=== PATIENT | male | born 1950 | race Caucasian/White ===

== ENCOUNTER → 2018-06-15 | Outpatient (CLI) | payer OTHER ==
[~2018-06-15] MED LIST: ASA5UEC PO; ATENOLOL 25 MG25 M1 PO; CARDURA4 MG PO; PREVACID30 MG PO; ZYLOPRIM100 MG PO
--- NOTE | 2018-06-15 16:52 | CARDNUC ---
[place] [address] CARDIAC NUCLEAR IMAGING REPORT Name: KERRI WAGGONER Room: [facility]#: [id number] Admission: 06/15/18 Attend Phys: Kerri Guzman, Discharge: Date of : 46 Date of Service: 06/15/18 165 Report #: [id number] THIS REPORT FOR: //name// APPROVED REPORT Imaging Protocol: Rest Tc-99m/Stress Tc-99m 1 day Study performed: 06/15/2018 09:30:00 Indication: Abnormal EKG,Chest pain Patient Location: Out-Patient Stress Tech: Angela Vargas Stress Nurse: Jaqueline Mendoza RN NM Tech:SONI Mckeon Ht: 5 ft 8 in Wt: 200 lbs BSA: 2.04 m2 BMI: 30.40 Medical History Medical History: Angina, Arrhythmia, Diabetes, Former Smoker, HTN, Hyperlipidemia, uses smokless tobacco presently. Medications: Atenolol, Cardura, Losartan, Rosuvastatin, ASA 325 Mg. Allergies: Penicillin Cardiac Risk Factors: Age, DM, FHX of CAD, HTN, Hyperlipidemia, Past Smoker, Now uses smokless tobacco. Previous Cardiac Procedures: None Pretest Chest Pain Characteristics: No chest pain Exercise History: Physically active Physical Disabilities: None Meds Held (24 hrs): Atenolol. Resting Data Rest SPECT myocardial perfusion imaging was performed in supine position 30 minutes following the intravenous injection of 10.9 mCi of Tc-99m Sestamibi. Time of rest injection: 939 Date: 06/15/2018 The images were gated to evaluate regional wall motion and calculate left ventricular ejection fraction. Administration Route: IV Administration Site: Left AC Exercise Stress At peak stress, the patient was injected intravenously with 33.6mCi of Tc-99m Sestamibi. Time of stress injection: [address] [place] [address] CARDIAC NUCLEAR IMAGING REPORT Name: KERRI WAGGONER Room: [facility]#: [id number] Admission: 06/15/18 Attend Phys: Kerri Guzman, Discharge: Date of : 46 Date of Service: 06/15/18 1652 Report #: [id number] Administration Route: IV Gated Stress SPECT was performed 30 minutes after stress injection. The images were gated to evaluate regional wall motion and calculate left ventricular ejection fraction. Prone imaging was performed. Stress Test Details Stress Test: Exercise stress testing was performed using a Pako protocol. HR Max Heart Rate (APMHR): 150 bpm Resting HR: 80 bpm Target HR (85% APMHR): 127 bpm Max HR Achieved: 138 bpm % of APMHR: 92 Recovery HR: 97 bpm BP Resting BP: 176/89 mmHg Max BP: 177/72 mmHg Recovery BP: 137/77 mmHg ECG Resting ECG: Sinus Rhythm Stress ECG: Sinus Tachycardia ST Change: None Arrhythmia: None Recovery ECG: Sinus Rhythm Recovery ST Change: None Recovery Arrhythmia: None Clinical Reason for Termination: Completed protocol, Target HR achieved. Stress Symptoms: Dyspnea, Lightheaded Exercise duration: 8 min 55 sec Exercise capacity: 10.16 METs Overall Exercise Capacity for Age: Normal The patient tolerated standard Pako protocol exercise without significant cardiac symptoms. Nurse Comments 68 year old male presented for Pako Protocol Nuclear Stress test. Patient tolerated Pako Protocol well. Recovery unremarkable. Patient escorted by staff to Nuclear Medicine for images. Patient stable with no [place] [address] CARDIAC NUCLEAR IMAGING REPORT Name: EDILSONKERRI LIGIA Room: [facility]#: [id number] Admission: 06/15/18 Attend Phys: Kerri Guzman, Discharge: Date of : 46 Date of Service: 06/15/18 1652 Report #: [id number] Stress ECG Conclusion The baseline 12-lead EKG shows sinus rhythm without significant ST or T wave abnormality. EKGs obtained during and post exercise showed sinus rhythm and sinus tachycardia with no significant ST or T wave changes when compared to baseline. There were no stress-induced arrhythmias. Study Quality Study: Good Artifact: No artifact Study Data At rest, the left ventricular ejection fraction was 62%.. Post stress, the left ventricular ejection was 70%.. TID = 0.79. Perfusion Normal left ventricular perfusion. Wall Motion Normal left ventricular wall motion. Nuclear Conclusion ECG Findings: negative for ischemia Clinical Findings: negative for ischemia Nuclear Findings: negative for ischemia Exercise Capacity: normal Left Ventricular Function: normal Risk Study: low Myocardial perfusion images show no defect to suggest infarct or ischemia. Left ventricular systolic function appears normal on gated studies. This is a low risk study. <Conclusion> The baseline 12-lead EKG shows sinus rhythm without significant ST or T wave abnormality. EKGs obtained during and post exercise showed sinus rhythm and sinus tachycardia with no significant ST or T wave changes when compared to baseline. There were no stress-induced arrhythmias. <ELECTRONICALLY SIGNED> By: Jeancarlos Whelan MD, FACC 06/15/181651 51 51 Jeancarlos Whelan MD, FACC /INF
== END ==
LOC: M.NUC 05-31 14:53
DX: R07.89 Other chest pain (principal); R94.31 Abnormal electrocardiogram [ECG] [EKG]; I10 Essential (primary) hypertension; E11.9 Type 2 diabetes mellitus without complications; E78.5 Hyperlipidemia, unspecified; Z87.891 Personal history of nicotine dependence